=== PATIENT | female | born 1970 | race Caucasian/White ===

== ENCOUNTER 2017-05-08 11:04 | Emergency (ER) | END 2017-05-08 11:26 | disposition home or self-care (01) ==

== ENCOUNTER 2018-08-17 14:37 | Emergency (ER) | payer BC ==
[~2018-08-17] VITALS: Ht 165.1 cm; Wt 82.1 kg
[~2018-08-17 14:37] MED LIST: ACET325T33 PO; CIPR500T4 PO; CYCL10TA7 PO; HYDR-3980 PO; IBUP-1542 PO; OSEL75CA23 PO
[2018-08-17 14:42] VITALS: BP 121/79; PULSE 104; RESP 18; Ht 165.1 cm; Wt 82.1 kg
[2018-08-17] MEDS ORDERED: NAPR-985 PO (15:05)
--- NOTE | 2018-08-17 15:21 | ERD ---
ER Documentation Chief Complaint Chief Complaint RIGHT HEEL AND FOOT PAIN FOR A MONTH; AMBULATORY, CMS INTACT HPI 48-year-old female presenting with right heel pain x1 month. Patient states that her pain is much worse in the morning when she wakes up and gets out of bed. It improves throughout the day however the pain returned the next morning. Has not taken medications for symptoms. Denies any recent falls or injuries. Denies other medical problems. NKDA. Surgical history denies. Social history denies ROS All systems reviewed and are negative except as per history of present illness. Medications Home Meds Active Scripts Naproxen* (Naprosyn*) 500 Mg Tablet, 500 MG PO BID PRN for PAIN AND/OR INFLAMMATION, #30 TAB Prov:JOLANTA VALLEJO PA-C 08/17/18 Oseltamivir Phosphate* (Tamiflu*) 75 Mg Capsule, 75 MG PO BID for 5 Days, CAP Prov:CHANEL STERN 05/08/17 Acetaminophen* (Tylenol*) 325 Mg Tablet, 2 TAB PO Q8 PRN for PAIN AND OR ELEVATED TEMP, #20 TAB Prov:CHANEL STERN 05/08/17 Cyclobenzaprine Hcl* (Cyclobenzaprine Hcl*) 10 Mg Tablet, 10 MG PO TID, #15 TAB Prov:MAUREEN BORRERO NP 12/10/15 Ibuprofen* (Motrin*) 600 Mg Tab, 600 MG PO Q6H PRN for PAIN AND OR ELEVATED TEMP, #30 TAB Prov:MAUREEN BORRERO NP 12/10/15 Hydrocodone/Acetaminophen (Lynn 10-325 Tablet) 1 Each Tablet, 1 TAB PO Q6H PRN for PAIN, #20 TAB Prov:MAUREEN BORRERO NP 12/10/15 Ciprofloxacin Hcl* (Ciprofloxacin Hcl*) 500 Mg Tablet, 500 MG PO BID for 7 Days, TAB Prov:MAUREEN BORRERO NP 12/10/15 Reported Medications [None] No Conflict Check 08/11/10 Allergies Allergies: Coded Allergies: No Known Allergies (Verified Allergy, Mild, 08/11/10) PMhx/Soc History of Surgery: No Anesthesia Reaction: No Hx Neurological Disorder: No Hx Respiratory Disorders: No Hx Cardiac Disorders: No Hx Psychiatric Problems: No Hx Miscellaneous Medical Probl: No Hx Alcohol Use: No Hx Substance Use: No Hx Tobacco Use: No Smoking Status: Never smoker FmHx Family History: No diabetes, No coronary disease, No other Physical Exam Vitals Vital Signs Date Temp Pulse Resp B/P (MAP) Pulse Ox O2 O2 Flow FiO2 Time Delivery Rate 08/17/18 97.6 104 18 121/79 97 14:42 (93) Physical Exam GENERAL: The patient is well-appearing, well-nourished, in no acute distress CHEST: Clear to auscultation bilaterally. There are no rales, wheezes or rhonchi. HEART: Regular rate and rhythm. No murmurs, clicks, rubs or gallops. No S3 or S4. ABDOMEN:Soft, nontender and nondistended. Good bowel sounds. No rebound or guarding. No gross peritonitis. No gross organomegaly or masses. N EXTREMITIES: Tender to palpation over the base of the right heel pain with flexion. No obvious deformity or swelling. NEUROLOGIC: Alert and oriented. Cranial nerves II through XII intact. Motor strength in all 4 extremities with 5 out of 5 strength. Sensation grossly intact. Normal speech and gait. SKIN: There is no apparent rash or petechiae. The skin is warm and dry. Procedures/MDM MDM: 48-year-old female presenting with left heel pain. I have low suspicion for acute fracture dislocation. Patient has findings consistent with plantar fasciitis. Patient will be discharged with strict ER precautions and told to follow-up with primary care within 1 to 2 days for close evaluation. Patient is told symptoms change or worsen to return immediately to the ER. All questions answered at discharge Departure Diagnosis: Primary Impression: Plantar fasciitis Condition: Stable Patient Instructions: Plantar Fasciitis Referrals: ELIEZER CARRION DPM [facility] YOU HAVE RECEIVED A MEDICAL SCREENING EXAM AND THE RESULTS INDICATE THAT YOU DO NOT HAVE A CONDITION THAT REQUIRES URGENT TREATMENT IN THE EMERGENCY DEPARTMENT. FURTHER EVALUATION AND TREATMENT OF YOUR CONDITION CAN WAIT UNTIL YOU ARE SEEN I N YOUR DOCTORS OFFICE WITHIN THE NEXT 1-2 DAYS. IT IS YOUR RESPONSIBILITY TO MAKE AN APPOINTMENT FOR FOLOW-UP CARE. IF YOU HAVE A PRIMARY DOCTOR --you should call your primary doctor and schedule an appointment IF YOU DO NOT HAVE A PRIMARY DOCTOR YOU CAN CALL OUR PHYSICIAN REFERRAL HOTLINE AT IF YOU CAN NOT AFFORD TO SEE A PHYSICIAN YOU CAN CHOSE FROM THE FOLLOWING [facility] [address] [facility] [address] [facility]. [facility] [address] [facility] [address] [facility]. [facility] [address] [facility]. [facility] [address] Additional Instructions: FOLLOW UP WITH YOUR PRIMARY CARE PHYSICIAN TOMORROW.Return to this facility if you are not improving as expected. JOLANTA VALLEJO PA-C Aug 17, 2018 15:21
== END 2018-08-17 15:10 | disposition home or self-care (01) ==
LOC: FTE 14:37
DX: M72.2 Plantar fascial fibromatosis (principal)
CPT/HCPCS: 99282